=== PATIENT | male | born 1985 | race Caucasian/White ===

== ENCOUNTER 2017-07-02 18:37 | Emergency (ER) | payer SELFPAY ==
[~2017-07-02] VITALS: Ht 172.7 cm; Wt 70.0 kg
[2017-07-02] MEDS ORDERED: ONDANSETRON HCL 4MG/2ML VIAL IV STA (20:40)
[2017-07-02] MEDS ORDERED: FOLIC ACID 1 MG, THIAMINE HCL 100 MG, MVI, ADULT NO.1 10 ML in DEXTROSE 5% WATER 1,000 ML IV ONE ×4 (20:45)
[2017-07-02 22:02] LABS: BASOPHILS % 0.8 % (0.0-2.0); EOSINOPHILS % 1.6 % (0.0-5.0); HEMOGLOBIN. 12.2 g/dL (14.0-18.0); LYMPHOCYTES % 32.3 % (20.0-50.0); MEAN CORPUSCULAR HEMOGLOBIN 32.4 pg (28.0-32.0); MEAN PLATELET VOLUME 5.9 fl (7.4-10.4); MONOCYTES % 7.9 % (2.0-8.0); NEUTROPHILS % 57.4 % (40.0-76.0); PLATELET 242 x1000/uL (130-400); RED BLOOD CELL COUNT 3.75 mill/uL (4.7-6.1); RED CELL DISTRIBUTION WIDTH 16.4 % (11.6-14.6)
[2017-07-02 22:07] LABS: INR 0.9; PROTHROMBIN TIME 9.8 sec (9.4-11.6)
[2017-07-02 22:08] LABS: CARBON DIOXIDE 22 mEq/L (21-32); CHLORIDE 115 mEq/L (98-107)
[2017-07-02 22:12] LABS: AMMONIA 42 uMol/L (<32)
[2017-07-02 22:14] LABS: CREATINE KINASE 182 IU/L (39-308)
[2017-07-02 22:15] LABS: TROPONIN I 0.02 ng/mL (0.00-0.04)
[2017-07-02 22:43] LABS: ETHANOL BLOOD 374 mg/dL
[2017-07-02] MEDS ORDERED: FOLIC ACID 1 MG, THIAMINE HCL 100 MG, MVI, ADULT NO.1 10 ML in DEXT 5%/0.45% NACL 1000M... IV NR ×4 (23:00)
[2017-07-03 02:21] LABS: CLARITY URINE CLEAR (CLEAR); COLOR URINE YELLOW (YELLOW); GLUCOSE URINE NEGATIVE (NEGATIVE); KETONES URINE NEGATIVE (NEGATIVE); LEUKOCYTE ESTERASE URINE NEGATIVE (NEGATIVE); NITRITE URINE NEGATIVE (NEGATIVE); OCCULT BLOOD URINE TRACE (NEGATIVE); PROTEIN URINE TRACE (NEGATIVE); SPECIFIC GRAVITY URINE 1.029 (1.005-1.030); UROBILINOGEN URINE 0.2 E.U./dL (0.2-1.0)
[2017-07-03 02:41] LABS: *AMPHETAMINES SCREEN URINE NEGATIVE (NEGATIVE); *BARBITURATES SCREEN URINE NEGATIVE (NEGATIVE); *BENZODIAZEPINES SCREEN URINE NEGATIVE (NEGATIVE); *COCAINE SCREEN URINE NEGATIVE (NEGATIVE); CANNABINOID URINE SCREEN NEGATIVE (NEGATIVE); METHADONE URINE SCREEN NEGATIVE (NEGATIVE); OPIATES URINE SCREEN NEGATIVE (NEGATIVE); PHENCYCLIDINE URINE SCREEN NEGATIVE (NEGATIVE)
[2017-07-03 04:39] VITALS: BP 127/68
== END 2017-07-03 05:14 | disposition home or self-care (01) ==
LOC: ER 20:31 → EDBD 20:31 → ER 07-03 05:14
DX: T51.0X1A Toxic effect of ethanol, accidental (unintentional), initial encounter (principal); G92 Toxic encephalopathy; D64.9 Anemia, unspecified; R94.5 Abnormal results of liver function studies; Y90.8 Blood alcohol level of 240 mg/100 ml or more; Y92.488 Other paved roadways as the place of occurrence of the external cause
CPT/HCPCS: 36415; 70450; 80053; 80305; 81001; 82140; 82550; 82962; 84443; 84484; 85025; 85610; 93005; 99285; G0482; J3411; J3490; J7070

== ENCOUNTER 2020-09-15 09:35 | Inpatient (IN) | payer SELFPAY ==
[~2020-09-15] VITALS: Ht 175.3 cm; Wt 62.8 kg
[2020-09-15] MEDS ORDERED: ONDANSETRON 4MG ODT PO STA (10:07)
[2020-09-15] MEDS ORDERED: CHLORDIAZEPOXIDE 25MG CAPSULE PO ONE (12:00)
[2020-09-15] MEDS ORDERED: LORAZEPAM 2MG/ML CPJ IV ONE ×4 (12:00→14:00)
[2020-09-15] MEDS ORDERED: SODIUM CHLORIDE 0.9% 1,000 ML IV ONE ×2 (12:00→13:45)
[2020-09-15 12:24] LABS: BASOPHILS % 0.3 % (0.0-2.0); LYMPHOCYTES % 7.7 % (20.0-50.0); MEAN CORPUSCULAR HEMOGLOBIN 25.5 pg (28.0-32.0); MEAN CORPUSCULAR VOLUME 82.1 fL (80.0-94.0); MEAN PLATELET VOLUME 7.2 fl (7.4-10.4); PLATELET 78 x1000/uL (130-400); RED BLOOD CELL COUNT 2.74 mill/uL (4.7-6.1); RED CELL DISTRIBUTION WIDTH 17.1 % (11.6-14.6)
[2020-09-15 12:31] LABS: CHLORIDE 97 mEq/L (98-107)
[2020-09-15 12:34] LABS: HEMATOCRIT. 22.5 % (42.0-52.0)
[2020-09-15 12:35] LABS: ETHANOL BLOOD 42 mg/dL
[2020-09-15 12:42] LABS: INR 1.1
[2020-09-15] MEDS ORDERED: PANTOPRAZOLE SODIUM 40 MG/VIAL IV STA (13:38)
[2020-09-15 15:40] LABS: CLARITY URINE CLOUDY (CLEAR); COLOR URINE YELLOW (YELLOW); KETONES URINE 1+ (NEGATIVE); LEUKOCYTE ESTERASE URINE NEGATIVE (NEGATIVE); NITRITE URINE NEGATIVE (NEGATIVE); OCCULT BLOOD URINE TRACE (NEGATIVE); PROTEIN URINE TRACE (NEGATIVE); SPECIFIC GRAVITY URINE 1.021 (1.005-1.030)
[2020-09-15] MEDS ORDERED: FOLIC ACID 1 MG, THIAMINE HCL 100 MG, MVI, ADULT NO.1 10 ML in DEXTROSE 5% WATER 1,000 ML IV ONE ×4 (18:00)
[2020-09-15] MEDS ORDERED: NA PHOS,M-B/NA PHOS,DI-BA ENEMA 118ML PR PRN (19:00)
[2020-09-15] MEDS ORDERED: GUAIFENESIN 200MG/10ML SUGAR FREE UDC PO PRN (19:00)
[2020-09-15] MEDS ORDERED: ONDANSETRON HCL 4MG/2ML INJ IV PRN (19:00)
[2020-09-15] MEDS ORDERED: MAGNESIUM/ALUMINUM HYDROXIDE/SIMETHICONE 30ML UDC PO PRN (19:00)
[2020-09-15] MEDS ORDERED: IPRATROPIUM/ALBUTEROL 0.5-3(2.5)MG/3ML NEB NEB PRN (19:00)
[2020-09-15] MEDS ORDERED: MORPHINE SULFATE 2 MG/ML CPJ (NOT FOR IM USE) IV PRN (19:00)
[2020-09-15] MEDS ORDERED: HYDROCODONE/ACETAMINOPHEN 10/325MG TABLET PO PRN (19:00)
[2020-09-15] MEDS ORDERED: ACETAMINOPHEN 325MG TABLET PO PRN (19:00)
[2020-09-15] MEDS ORDERED: DOCUSATE SODIUM 100MG CAPSULE PO PRN (19:00)
[2020-09-15] MEDS ORDERED: DIPHENHYDRAMINE 50MG/ML VIAL IV PRN (19:00)
[2020-09-15] MEDS ORDERED: CLONIDINE 0.1MG TABLET PO PRN (19:00)
[2020-09-15] MEDS: DEXT 5%/0.9% NACL 1,000 ML IV SCH (19:13)
[2020-09-15] MEDS ORDERED: DEXT 5%/0.9% NACL 1,000 ML IV ONE (19:15)
[2020-09-15] MEDS ORDERED: PANTOPRAZOLE SODIUM 40 MG/VIAL IV ONE (19:15)
[2020-09-15] MEDS ORDERED: OCTREOTIDE 50 MCG in SODIUM CHLORIDE 0.9% 100 ML IV ONE ×4 (19:30→20:30)
[2020-09-15] MEDS ORDERED: PANTOPRAZOLE SODIUM 40 MG/VIAL IV NR (20:00)
[2020-09-15] MEDS: LORAZEPAM 2MG/ML CPJ IV PRN (20:12)
[2020-09-15] MEDS ORDERED: OCTREOTIDE 1,000 MCG in SODIUM CHLORIDE 0.9% 100 ML IV SCH (20:45)
[2020-09-15 22:18] VITALS: BP 101/71
[2020-09-15 22:30] VITALS: BP 101/71
[2020-09-15 23:08] VITALS: BP 107/60
[2020-09-15] MEDS ORDERED: OCTREOTIDE 1,000 MCG in SODIUM CHLORIDE 0.9% 98 ML IV PRN (23:15)
[2020-09-15 23:23] VITALS: BP 68/32
[2020-09-15] MEDS ORDERED: OCTREOTIDE 1,000 MCG in SODIUM CHLORIDE 0.9% 90 ML IV SCH (23:45)
[2020-09-16] VITALS (34 sets, daily range): BP systolic 79–142; BP diastolic 43–100
[2020-09-16] MEDS ORDERED: POTASSIUM CHLORIDE INJ 30 MEQ in DEXT 5%/0.9% NACL 1,000 ML IV SCH ×2
[2020-09-16 00:14] LABS: CHLORIDE 108 mEq/L (98-107)
[2020-09-16 00:17] LABS: INR 1.4; PARTIAL THROMBOPLASTIN TIME 34.3 sec (23.4-31.0)
[2020-09-16 00:22] LABS: PHOSPHORUS 2.4 mg/dL (2.5-4.9)
[2020-09-16 00:25] LABS: CREATINE KINASE 343 IU/L (39-308)
[2020-09-16 00:26] LABS: MEAN CORPUSCULAR VOLUME 86.4 fL (80.0-94.0)
[2020-09-16 00:27] LABS: CREATINE KINASE MB FRACTION 4.2 ng/mL (0.5-3.6)
[2020-09-16 00:31] LABS: MEAN CORPUSCULAR HEMOGLOBIN 28.9 pg (28.0-32.0); PLATELET 80 x1000/uL (130-400); RED BLOOD CELL COUNT 1.44 mill/uL (4.7-6.1); RED CELL DISTRIBUTION WIDTH 17.2 % (11.6-14.6)
[2020-09-16] MEDS: OCTREOTIDE 1,000 MCG in SODIUM CHLORIDE 0.9% 90 ML IV SCH ×2 (00:32→21:40)
[2020-09-16 00:34] LABS: HEMATOCRIT 12.5 % (42.0-52.0); HEMOGLOBIN 4.2 g/dL (14.0-18.0)
[2020-09-16] MEDS ORDERED: MAGNESIUM 2 G PREMIX 50 ML IV SCH (01:00)
[2020-09-16 01:46] LABS: BG FRACTION INSPIRED OXYGEN 36; BG HCO3 ACT 19.3 mmol/L (22.0-26.0); BG PCO2 26.3 mmHg (35.0-45.0); BG PH 7.483 (7.350-7.450); BG PO2 171.2 mmHg (75.0-100.0); BG TOTAL HEMOGLOBIN < 4.5 g/dL (12.0-18.0); BG VENT MODE NASAL CANNULA
[2020-09-16] MEDS ORDERED: PHYTONADIONE 10MG/ML AMP SUBCUT SCH (04:15)
[2020-09-16] MEDS ORDERED: DEXTROSE 50% WATER 50ML SYRINGE IV PRN (04:30)
[2020-09-16] MEDS: DEXT 5%/0.9% NACL 1,000 ML IV SCH ×2 (05:00→15:00)
[2020-09-16] MEDS: BLOOD SUGAR DIAGNOSTIC STRIP TEST SCH ×4 (06:24→20:53)
[2020-09-16 07:26] LABS: BASOPHILS % 0.4 % (0.0-2.0); EOSINOPHILS % 0.2 % (0.0-5.0); HEMATOCRIT. 23.6 % (42.0-52.0); HEMOGLOBIN. 8.1 g/dL (14.0-18.0); LYMPHOCYTES % 17.5 % (20.0-50.0); MEAN CORPUSCULAR HEMOGLOBIN 29.7 pg (28.0-32.0); MEAN CORPUSCULAR VOLUME 86.4 fL (80.0-94.0); MEAN PLATELET VOLUME 9.5 fl (7.4-10.4); MONOCYTES % 2.7 % (2.0-8.0); NEUTROPHILS % 79.2 % (40.0-76.0); PLATELET 63 x1000/uL (130-400); RED BLOOD CELL COUNT 2.73 mill/uL (4.7-6.1); RED CELL DISTRIBUTION WIDTH 15.2 % (11.6-14.6)
[2020-09-16 07:36] LABS: CHLORIDE 115 mEq/L (98-107)
[2020-09-16 07:42] LABS: INR 1.4; PROTHROMBIN TIME 14.1 sec (9.6-11.0)
[2020-09-16 07:48] LABS: CREATINE KINASE 370 IU/L (39-308)
[2020-09-16 07:49] LABS: CREATINE KINASE MB FRACTION 3.7 ng/mL (0.5-3.6); TOTAL IRON BINDING CAPACITY 268 ug/dL (250-450)
[2020-09-16 08:17] LABS: FOLIC ACID (FOLATE) SERUM 11.2 ng/mL (>5.38)
[2020-09-16] MEDS: PANTOPRAZOLE SODIUM 40 MG/VIAL IV SCH ×2 (11:39→16:59)
[2020-09-16] MEDS: INSULIN LISPRO 100 UNITS/ML SUBCUT SCH ×3 (11:51→20:53)
[2020-09-16 13:51] LABS: HEMATOCRIT 13.2 % (42.0-52.0); HEMOGLOBIN 4.6 g/dL (14.0-18.0)
[2020-09-16] MEDS: SODIUM CHLORIDE 0.9% INJ 3ML FLUSH IVF SCH ×3 (14:00→21:02)
[2020-09-16 22:22] LABS: HEMOGLOBIN 6.9 g/dL (14.0-18.0)
[2020-09-16 23:55] LABS: HEMOGLOBIN 6.5 g/dL (14.0-18.0)
[2020-09-17] VITALS (17 sets, daily range): BP systolic 113–138; BP diastolic 51–93
[2020-09-17] MEDS: DEXT 5%/0.9% NACL 1,000 ML IV SCH ×3 (00:37→21:07)
[2020-09-17 04:25] LABS: BASOPHILS % 0.4 % (0.0-2.0); EOSINOPHILS % 1.7 % (0.0-5.0); HEMATOCRIT. 29.6 % (42.0-52.0); HEMOGLOBIN. 10.3 g/dL (14.0-18.0); MEAN CORPUSCULAR HEMOGLOBIN 29.9 pg (28.0-32.0); MEAN CORPUSCULAR VOLUME 86.4 fL (80.0-94.0); MEAN PLATELET VOLUME 8.4 fl (7.4-10.4); MONOCYTES % 4.3 % (2.0-8.0); NEUTROPHILS % 76.6 % (40.0-76.0); PLATELET 69 x1000/uL (130-400); RED BLOOD CELL COUNT 3.43 mill/uL (4.7-6.1); RED CELL DISTRIBUTION WIDTH 14.7 % (11.6-14.6)
[2020-09-17 04:33] LABS: CHLORIDE 117 mEq/L (98-107)
[2020-09-17 04:37] LABS: INR 1.1; PROTHROMBIN TIME 11.8 sec (9.6-11.0)
[2020-09-17] MEDS: SODIUM CHLORIDE 0.9% INJ 3ML FLUSH IVF SCH ×3 (05:54→21:24)
[2020-09-17 06:08] LABS: *AMPHETAMINES SCREEN URINE NEGATIVE (NEGATIVE); *BARBITURATES SCREEN URINE NEGATIVE (NEGATIVE); *BENZODIAZEPINES SCREEN URINE PRESUMTIVE POSITIVE (NEGATIVE)
[2020-09-17 06:09] LABS: *COCAINE SCREEN URINE NEGATIVE (NEGATIVE); CANNABINOID URINE SCREEN NEGATIVE (NEGATIVE); METHADONE URINE SCREEN NEGATIVE (NEGATIVE); OPIATES URINE SCREEN NEGATIVE (NEGATIVE); PHENCYCLIDINE URINE SCREEN NEGATIVE (NEGATIVE)
[2020-09-17] MEDS: BLOOD SUGAR DIAGNOSTIC STRIP TEST SCH ×4 (06:11→21:20)
[2020-09-17] MEDS: INSULIN LISPRO 100 UNITS/ML SUBCUT SCH ×4 (07:20→21:23)
[2020-09-17] MEDS: PANTOPRAZOLE SODIUM 40 MG/VIAL IV SCH ×2 (08:36→19:11)
[2020-09-17 10:05] LABS: HEMATOCRIT 29.7 % (42.0-52.0); HEMOGLOBIN 10.4 g/dL (14.0-18.0)
[2020-09-17] MEDS ORDERED: PROPOFOL 200MG/20ML VIAL IV ONE (14:49)
[2020-09-17] MEDS ORDERED: ONDANSETRON HCL 4MG/2ML INJ IV PRN (15:15)
[2020-09-17] MEDS ORDERED: HYDROMORPHONE HCL/PF 2MG/ML CPJ IV PRN (15:15)
[2020-09-17] MEDS ORDERED: LABETALOL 5MG/ML SYR 20 MG/4 ML SYRINGE IV PRN (15:15)
[2020-09-17] MEDS ORDERED: MEPERIDINE HCL/PF 25MG/ML CPJ IV PRN (15:15)
[2020-09-17] MEDS: SUCRALFATE 1 G/10 ML UDC PO SCH ×2 (19:11→21:07)
[2020-09-17] MEDS ORDERED: OCTREOTIDE 1,000 MCG in SODIUM CHLORIDE 0.9% 90 ML IV SCH (21:00)
[2020-09-17] MEDS: LORAZEPAM 2MG/ML CPJ IV PRN (21:08)
[2020-09-17 21:14] LABS: HEMATOCRIT 27.4 % (42.0-52.0); HEMOGLOBIN 9.7 g/dL (14.0-18.0)
[2020-09-17] MEDS: OCTREOTIDE 1,000 MCG in SODIUM CHLORIDE 0.9% 98 ML IV SCH (22:02)
[2020-09-18] VITALS (10 sets, daily range): BP systolic 76–120; BP diastolic 44–84
[2020-09-18 00:25] LABS: HEMATOCRIT 26.9 % (42.0-52.0); HEMOGLOBIN 9.4 g/dL (14.0-18.0)
[2020-09-18 01:46] LABS: HEMATOCRIT 25.9 % (42.0-52.0); HEMOGLOBIN 9.1 g/dL (14.0-18.0)
[2020-09-18] MEDS: SODIUM CHLORIDE 0.9% INJ 3ML FLUSH IVF SCH ×3 (05:17→21:18)
[2020-09-18] MEDS: BLOOD SUGAR DIAGNOSTIC STRIP TEST SCH ×4 (05:58→20:54)
[2020-09-18] MEDS: SUCRALFATE 1 G/10 ML UDC PO SCH ×4 (06:01→20:41)
[2020-09-18] MEDS: DEXT 5%/0.9% NACL 1,000 ML IV SCH ×2 (06:01→18:06)
[2020-09-18] MEDS: INSULIN LISPRO 100 UNITS/ML SUBCUT SCH ×4 (07:20→20:54)
[2020-09-18 07:24] LABS: BASOPHILS % 0.5 % (0.0-2.0); EOSINOPHILS % 1.2 % (0.0-5.0); HEMATOCRIT. 26.7 % (42.0-52.0); HEMOGLOBIN. 9.5 g/dL (14.0-18.0); LYMPHOCYTES % 21.1 % (20.0-50.0); MEAN CORPUSCULAR HEMOGLOBIN 30.7 pg (28.0-32.0); MEAN CORPUSCULAR VOLUME 86.2 fL (80.0-94.0); MEAN PLATELET VOLUME 7.7 fl (7.4-10.4); MONOCYTES % 6.8 % (2.0-8.0); NEUTROPHILS % 70.4 % (40.0-76.0); PLATELET 100 x1000/uL (130-400); RED BLOOD CELL COUNT 3.09 mill/uL (4.7-6.1); RED CELL DISTRIBUTION WIDTH 14.5 % (11.6-14.6)
[2020-09-18 07:44] LABS: CHLORIDE 103 mEq/L (98-107)
[2020-09-18] MEDS ORDERED: BISACODYL 5MG TABLET PO PRN (11:45)
[2020-09-18] MEDS: METOCLOPRAMIDE HCL 10MG/2ML VIAL IV SCH ×3 (12:53→20:42)
[2020-09-18] MEDS: SORBITOL 70% SOLN 30ML PO SCH ×3 (12:54→20:41)
[2020-09-18] MEDS: PANTOPRAZOLE SODIUM 40 MG/VIAL IV SCH ×2 (13:06→18:06)
[2020-09-18] MEDS ORDERED: BISACODYL 5MG TABLET PO SCH (17:00)
[2020-09-18] MEDS ORDERED: POTASSIUM CHLORIDE 20MEQ TABLET SR PO NR (17:36)
[2020-09-18] MEDS: OCTREOTIDE 1,000 MCG in SODIUM CHLORIDE 0.9% 98 ML IV SCH (18:07)
[2020-09-18] MEDS: BISACODYL 5MG TABLET PO SCH (20:42)
[2020-09-19] VITALS (11 sets, daily range): BP systolic 75–136; BP diastolic 51–97
[2020-09-19] MEDS: DEXT 5%/0.9% NACL 1,000 ML IV SCH ×3 (00:50→23:03)
[2020-09-19] MEDS: BISACODYL 5MG TABLET PO SCH (04:15)
[2020-09-19] MEDS: METOCLOPRAMIDE HCL 10MG/2ML VIAL IV SCH (04:15)
[2020-09-19] MEDS: SORBITOL 70% SOLN 30ML PO SCH (04:15)
[2020-09-19] MEDS: SODIUM CHLORIDE 0.9% INJ 3ML FLUSH IVF SCH ×3 (05:33→22:39)
[2020-09-19] MEDS: SUCRALFATE 1 G/10 ML UDC PO SCH ×4 (06:11→21:09)
[2020-09-19] MEDS: BLOOD SUGAR DIAGNOSTIC STRIP TEST SCH ×4 (06:15→21:08)
[2020-09-19] MEDS: INSULIN LISPRO 100 UNITS/ML SUBCUT SCH ×4 (07:20→21:00)
[2020-09-19 07:30] LABS: CHLORIDE 109 mEq/L (98-107)
[2020-09-19 07:39] LABS: HEMATOCRIT. 26.6 % (42.0-52.0); HEMOGLOBIN. 9.4 g/dL (14.0-18.0); MEAN CORPUSCULAR HEMOGLOBIN 30.9 pg (28.0-32.0); MEAN CORPUSCULAR VOLUME 87.4 fL (80.0-94.0); MEAN PLATELET VOLUME 6.9 fl (7.4-10.4); PLATELET 133 x1000/uL (130-400); RED BLOOD CELL COUNT 3.04 mill/uL (4.7-6.1); RED CELL DISTRIBUTION WIDTH 14.5 % (11.6-14.6)
[2020-09-19] MEDS: PANTOPRAZOLE SODIUM 40 MG/VIAL IV SCH ×2 (09:14→17:16)
[2020-09-19] MEDS ORDERED: POTASSIUM CHLORIDE INJ 40 MEQ in DEXT 5% WATER 250 ML IV NR (11:00)
[2020-09-19] MEDS ORDERED: KETAMINE HCL 50 MG/ML 10ML ONE (11:01)
[2020-09-19] MEDS ORDERED: LIDOCAINE HCL/PF 1% 10 MG/ML 5ML VIAL ONE (11:02)
[2020-09-19] MEDS ORDERED: PROPOFOL 200MG/20ML VIAL IV ONE ×2 (11:02→13:25)
[2020-09-19] MEDS ORDERED: MIDAZOLAM HCL 2 MG/2 ML VIAL ONE (11:02)
[2020-09-19] MEDS ORDERED: NA PHOS,M-B/NA PHOS,DI-BA ENEMA 118ML PR SCH (12:00)
[2020-09-19 15:17] LABS: CHLORIDE 109 mEq/L (98-107)
[2020-09-19 16:01] LABS: PLATELET ESTIMATE NORMAL
[2020-09-19] MEDS: OCTREOTIDE 1,000 MCG in SODIUM CHLORIDE 0.9% 98 ML IV SCH (17:46)
[2020-09-19] MEDS: LORAZEPAM 2MG/ML CPJ IV PRN (22:39)
[2020-09-20] VITALS (12 sets, daily range): BP systolic 93–123; BP diastolic 53–80
[2020-09-20] MEDS: SUCRALFATE 1 G/10 ML UDC PO SCH ×4 (06:04→21:32)
[2020-09-20] MEDS: SODIUM CHLORIDE 0.9% INJ 3ML FLUSH IVF SCH ×3 (06:05→21:32)
[2020-09-20] MEDS: INSULIN LISPRO 100 UNITS/ML SUBCUT SCH ×4 (06:11→21:00)
[2020-09-20] MEDS: BLOOD SUGAR DIAGNOSTIC STRIP TEST SCH ×4 (06:11→21:26)
[2020-09-20] MEDS: DEXT 5%/0.9% NACL 1,000 ML IV SCH (09:00)
[2020-09-20] MEDS: PANTOPRAZOLE SODIUM 40 MG/VIAL IV SCH ×2 (09:29→17:12)
[2020-09-20 13:07] LABS: HEMATOCRIT 28.9 % (42.0-52.0); HEMOGLOBIN 9.9 g/dL (14.0-18.0); MEAN CORPUSCULAR HEMOGLOBIN 30.5 pg (28.0-32.0); MEAN CORPUSCULAR VOLUME 88.7 fL (80.0-94.0); PLATELET 188 x1000/uL (130-400); RED BLOOD CELL COUNT 3.26 mill/uL (4.7-6.1); RED CELL DISTRIBUTION WIDTH 14.6 % (11.6-14.6)
[2020-09-21] VITALS: BP 104/63
[2020-09-21 02:00] VITALS: BP 104/62
[2020-09-21 04:00] VITALS: BP 93/64
[2020-09-21 06:02] VITALS: BP 141/103
[2020-09-21] MEDS: SUCRALFATE 1 G/10 ML UDC PO SCH (06:30)
[2020-09-21] MEDS: SODIUM CHLORIDE 0.9% INJ 3ML FLUSH IVF SCH (06:31)
[2020-09-21] MEDS: INSULIN LISPRO 100 UNITS/ML SUBCUT SCH (06:31)
[2020-09-21] MEDS: BLOOD SUGAR DIAGNOSTIC STRIP TEST SCH (06:31)
[2020-09-21 06:37] VITALS: BP 141/103
[2020-09-21 07:16] LABS: HEMATOCRIT. 29.5 % (42.0-52.0); HEMOGLOBIN. 10.4 g/dL (14.0-18.0); MEAN CORPUSCULAR HEMOGLOBIN 30.9 pg (28.0-32.0); MEAN CORPUSCULAR VOLUME 87.8 fL (80.0-94.0); MEAN PLATELET VOLUME 6.7 fl (7.4-10.4); PLATELET 246 x1000/uL (130-400); RED BLOOD CELL COUNT 3.36 mill/uL (4.7-6.1); RED CELL DISTRIBUTION WIDTH 15.1 % (11.6-14.6)
[2020-09-21 07:53] LABS: CHLORIDE 106 mEq/L (98-107)
[2020-09-21 15:22] LABS: PLATELET ESTIMATE NORMAL
== END 2020-09-21 07:16 | disposition home or self-care (01) | DRG 241 ==
LOC: ER 09:35 → 3WST 13:40 → ENRESERV 20:42
PROVIDERS: ADMIT Internal Medicine; ATTEND Internal Medicine
PROC: 0DB68ZX Excision of Stomach, Via Natural or Artificial Opening Endoscopic, Diagnostic (ICD-10-PCS; principal; 2020-09-17)
PROC: 0DJD8ZZ Inspection of Lower Intestinal Tract, Via Natural or Artificial Opening Endoscopic (ICD-10-PCS; 2020-09-17)
PROC: 30233K1 Transfusion of Nonautologous Frozen Plasma into Peripheral Vein, Percutaneous Approach (ICD-10-PCS; 2020-09-17)
PROC: 30233N1 Transfusion of Nonautologous Red Blood Cells into Peripheral Vein, Percutaneous Approach (ICD-10-PCS; 2020-09-19)
PROC: 30233R1 Transfusion of Nonautologous Platelets into Peripheral Vein, Percutaneous Approach (ICD-10-PCS; 2020-09-19)
DX: K29.71 Gastritis, unspecified, with bleeding (principal); D64.9 Anemia, unspecified; D69.6 Thrombocytopenia, unspecified; E46 Unspecified protein-calorie malnutrition; E87.6 Hypokalemia; F10.21 Alcohol dependence, in remission; F10.239 Alcohol dependence with withdrawal, unspecified; I10 Essential (primary) hypertension; K22.11 Ulcer of esophagus with bleeding; K44.9 Diaphragmatic hernia without obstruction or gangrene; R17 Unspecified jaundice; D68.9 Coagulation defect, unspecified; Z20.828 Contact with and (suspected) exposure to other viral communicable diseases; R74.01 Elevation of levels of liver transaminase levels; F19.10 Other psychoactive substance abuse, uncomplicated; Z68.20 Body mass index [BMI] 20.0-20.9, adult; Z59.0 Homelessness; Z87.19 Personal history of other diseases of the digestive system; Z79.899 Other long term (current) drug therapy
CPT/HCPCS: 36415; 36600; 71275; 74174; 76700; 78278; 80048; 80053; 80076; 80305; 80320; 81003; 82140; 82248; 82375; 82550; 82553; 82607; 82728; 82746; 82962; 83036; 83540; 83550; 83735; 84100; 84484; 85014; 85018; 85025; 85027; 85044; 86850; 86900; 86920; 86927; 87426; 88305; 88313; 93005; 93970; 99291; A9560; C9113; J1200; J1815; J2060; J2250; J2354; J2405; J2704; J2765; J3411; J3430; J3475; J3480; J3490; J7030; J7040; J7042; J7050; J7060; J7070; P9016; P9017; P9021; P9034; Q0162; G0480